=== PATIENT | female | born 1960 | race Caucasian/White ===

== ENCOUNTER → 2017-08-09 | Outpatient (CLI) | payer BC ==
[~2017-08-09] MED LIST: ALPRAZOLAM PO; ASPIRIN81 M2 PO; DYAZIDE 37.5/251 CAP PO; ESTRACE PO; ESTROPIPATE PO; KEPPRA500 M2 PO; KEPPRA500 MG PO; LISINOPRIL5 MG PO; LORTAB 10-3251 EACH PO; PREMARIN PO; PROTONIX PO; SIMVASTATIN10 MG PO; TRIAMTERENE/HCTZ PO
--- NOTE | ~2017-08-09 | MY29 ---
[facility] A Service of [facility] RADIOLOGY TEXT RESULTS PATIENT: SHAUN BOWLING LOCATION: [facility] : 56 UNIT #: [id number] AGE: [address]: Marielle Crockett APRN SEX: F ORDER DR: [id number] [facility] [address]. [place], [place] [address] [id number] O MR#: [id number] Acc #: [id number] NAME: SHAUN BOWLING : 1960 SEX: F STUDY DATE/TIME: 08/09/2017 11:23 UNIT: [facility] ROOM: STUDY DESCRIPTION: [facility] SCREENING W/ CAD BILAT Attending Physician: Marielle Crockett A.P.R.N. Referring Physician: Marielle Crockett A.P.R.N. Ordering Physician: Marielle Corckett A.P.R.N. Primary Care Physician: Marielle Crockett A.P.R.N. MEDICAL IMAGING REPORT This report is preliminary unless electronic signature is present EXAM Bilateral digital screening mammogram with CAD, 08/09/2017. HISTORY 56-year-old female with no personal or family history of breast cancer. No current complaints. COMPARISON Bilateral screening mammogram 08/07/2016, 07/28/2015. FINDINGS CC and MLO views were obtained of each breast, utilizing digital technique, and reviewed with an FDA-approved CAD device. Scattered fibroglandular densities are present bilaterally. No suspicious nodule, architectural distortion, or cluster of microcalcifications is seen. IMPRESSION Negative screening mammogram. Routine screening mammogram recommended in 1 year. Patients over the age of 40 are entered into a reminder system with target due date for the next mammogram. A result letter will also be sent to the patient. BIRADS: 1 Negative Dictated by... Ingrid Romo M.D. THIS IS AN ELECTRONICALLY VERIFIED REPORT [facility] A Service of [facility] RADIOLOGY TEXT RESULTS PATIENT: SHAUN BOWLING LOCATION: [facility] : 56 UNIT #: [id number] AGE: [address]: Marielle Crockett APRN SEX: F ORDER DR: Ingrid oRmo M.D. at 08/12/2017 8:49 AM Kiley TD: 08/09/2017 15:58 JOB #: [id number] MEDICAL IMAGING REPORT Page 1 of 1 COPY
== END | disposition home or self-care (01) ==
LOC: CWCC 11:03
DX: Z12.31 Encounter for screening mammogram for malignant neoplasm of breast (principal)
CPT/HCPCS: G0202